=== PATIENT | female | born 2005 | race African-American/Black ===

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

== ENCOUNTER 2025-02-16 19:24 | Emergency (ER) | payer SELFPAY ==
[~2025-02-16] VITALS: Ht 165.1 cm; Wt 58.2 kg
--- NOTE | 2025-02-16 20:06 | ED.PDOC ---
General HPI Comments 19 y.o female presents to the ED for a chief complaint of bilateral lower lumbar/flank pain that has been ongoing for 2-3 days. Patient reports being diagnose with a UTI at an urgent care one week ago due to urinary symptoms. Patient was placed on a 5 day course of Cipro in which she finished but continues to have symptoms such as frequency and suprapubic cramping. Patient reports back pain is intermittent but has worsened throughout the day, now rati ng a 7/10 on the pain scale. Patient reports no recent falls, heavy lifting, dysuria, hematuria, fever, chills, nausea or vomiting. Patient's [facility] was on 01/22/25. No other medical history reported. Chief Complaint: Back Pain Time Seen by MD: 19:55 Primary Care Provider: NONE Reviewed notes: Nurses Notes, Medications, Allergies Allergies: Coded Allergies: NO KNOWN ALLERGIES (Unverified , 07/15/16) Information Source: Patient Mode of Arrival: Ambulatory Severity: Moderate Timing: Days Duration: Since onset Onset: Spontaneous Symptoms: Frequency History of: UTI Location: Suprapubic, (R) Flank, (L)Flank associated signs and symptoms: Flank Pain, Back Pain, Frequency Past Medical History PAST MEDICAL HISTORY: UTI'S Surgical History: Denies all surgeries CARD BOXER History: No Pertinent CARD BOXER History Family History Family History: Reviewed,noncontributory to illness Social History Smoker: Non-Smoker Alcohol: Denies ETOH Use Drugs: Denies Drug Use Lives In: Home Constitutional: denies: chills, diaphoresis, fatigue, fever, malaise, sweats, weakness, others EENTM: denies: blurred vision, double vision, ear bleeding, ear discharge, ear drainage, ear pain, ear ringing, eye pain, eye redness, hearing loss, mouth pain, mouth swelling, nasal discharge, nose bleeding, nose congestion, nose pain, photophobia, tearing, throat pain, throat swelling, voice changes, others Respiratory: denies: cough, hemoptysis, orthopnea, SOB at rest, shortness of breath, SOB with excertion, stridor, wheezing, others Cardiovascular: denies: chest pain, dizzy spells, diaphoresis, Dyspnea on exertion, edema, irregular heart beat, left arm pain, lightheadedness, palpitations, PND, syncope, others Gastrointestinal: denies: abdomen distended, abdominal pain, blood streaked bowels, constipated, diarrhea, dysphagia, difficulty swallowing, hematemesis, melena, nausea, poor appetite, poor fluid intake, rectal bleeding, rectal pain, vomiting, others Genitourinary: reports: flank pain, frequency; denies: abnormal vagina bleeding, burning, dyspareunia, dysuria, hematuria, incontinence, pain, , vagina discharge, urgency, others Neurological: denies: dizziness, fainting, headache, left sided numbness, left sided weakness, numbness, paresthesia, pre-existing deficit, right sided numbness, right sided weakness, seizure, speech problems, tingling, tremors, weakness, others Musculoskeletal: reports: back pain; denies: gout, joint pain, joint swelling, muscle pain, muscle stiffness, neck pain, others Integumetry: denies: bruises, change in color, change in hair/nails, dryness, laceration, lesions, lumps, rash, wounds, others Allergic/Immunocompromised: denies: Difficulty Healing, Frequent Infections, Hives, Itching, others Hematologic/Lymphatic: denies: anemia, blood clots, easy bleeding, easy bruising, swollen glands, others Endocrine: denies: excessive hunger, excessive sweating, excessive thirst, excessive urination, flushing, intolerance to cold, intolerance to heat, unexplained weight gain, unexplained weight loss, others Psychiatric: denies: anxiety, bipolar disorder, depression, hopeless, panic disorder, schizophrenia, sleepless, suicidal, others All Other Systems: Reviewed and Negative Physical Exam General Appearance: No Apparent Distress, Normal HEENT: Normal ENT Inspection, Pharynx Normal, TMs Normal Neck: Full Range of Motion, Non-Tender, Normal, Normal Inspection Respiratory: Chest Non-Tender, Lungs Clear, No Accessory Muscle Use, No Respir atory Distress, Normal Breath Sounds Cardiovascular: No Edema, No JVD, No Murmur, No Gallop, Normal Peripheral Pulses, Regular Rate/Rhythm Breast Exam: Deferred Gastrointestinal: No Organomegaly, No Pulsatile Mass, Normal Bowel Sounds, Suprapubic, Tenderness Genitalia: Deferred Pelvic: Deferred Rectal: Deferred Extremities: No calf tenderness, Normal capillary refill, Normal inspection, Normal range of motion, Non-tender, No pedal edema Musculoskeletal : Location: Bilateral Extremity Location: Back (lumbar ), Other (BL flank region tenderness ) Apperance: Tenderness: Moderate Neurologic: Alert, 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 Was a procedure done?: No Differential Diagnosis Kidney stone (Female): Hepatitis, HNP, Musculoskeletal pain, Ovarian torsion, Pancreatitis, Pyelonephritis, Strain, Urolithiasis Urinary Problem (Female): Intrauterine , PID, Pyelonephritis, Urolithiasis, UTI X-Ray, Labs, Meds, VS Vital Signs Date Time Temp Pulse Resp B/P (MAP) Pulse Ox O2 Delivery O2 Flow Rate FiO2 02/16/25 19:25 97.6 56 16 125/78 100 97.6 Lab Test 02/16/25 19:25 Range/Units Urine Color Colorless Yellow Urine Clarity Clear Clear Urine pH 6.0 5.0-9.0 Urine Specific [place] 1.004 1.001-1.035 Urine Protein Negative Negative Urine Ketones Negative Negative Urine Blood Negative Negative /uL Urine Nitrite Negative Negative Urine Bilirubin Negative Negative Urine Urobilinogen Normal Negative mg/dL Urine Leukocyte Esterase Negative Negative /uL Urine RBC 1 0 - 4 /hpf Urine Microscopic WBC < 1 0-5 /HPF Urine Squamous Epithelial Cells None seen <5 /hpf Urine Bacteria Few H None Seen /hpf Urine Glucose Normal Normal mg/dL X-Ray, Labs, Meds, VS Comment Imaging was reviewed by this provider, there is no obvious pathological or acute disease process. Pending radiology review Labs were reviewed by this provider, no abnormalities Vital signs reviewed by this provider, clinically stable Time of 1ST Reevaluation: 20:05 Reevaluation 1ST: Unchanged Patient Education/Counseling: Diagnosis, Treatment, Prognosis, Need For Follow Up (Follow up with PCP in the next two three days. Return to emergency department if symptoms worsen.) Family Education/Counseling: No Family Present SEPSIS Sepsis Screen Date sepsis recognized/suspect: Feb 16, 2025 Time Sepsis recognized/suspect: 1924 Recent Procedure: No On Antibiotic Therapy: Yes Respiratory Rate >20: No Heart Rate >90: No Temp<36 C (96.8 F) or >38.3 C: No SBP <90 or MAP <65 mmHG: No New Acute Mental Status Change: No Is the patient on CPAP, BIPAP,: No Vital Signs Date Time Temp Pulse Resp B/P (MAP) Pulse Ox O2 Delivery O2 Flow Rate FiO2 02/16/25 19:25 97.6 56 16 125/78 100 97.6 Departure 1 Departure Time of Disposition: 21:01 Impression: Primary Impression: Acute urinary tract infection Disposition: HOME / SELF CARE / HOMELESS Condition: Fair e-Prescriptions Nitrofurantoin Monohydrate Mac (Macrobid) 100 Mg Cap 100 MG PO BID for 5 Days, #10 CAP Prov: AMARI WILSON 02/16/25 Discharged With: Self Critical Care Note Critical Care Time?: No Stability Stability form required: No I personally scribed for AMARI WILSON ([email or web address]) on 02/16/25 at 20:06. Electronically submitted by Anat Gomez ([facility]). AMARI WILSON Feb 16, 2025 20:06
[2025-02-16 20:17] LABS: Urine Protein, UAD Negative (Negative)
[2025-02-16] MEDS ORDERED: NITR-87 PO (21:03)
[2025-02-17 01:11] VITALS: BP 118/80; PULSE 60; RESP 16; TEMP 98.2; O2SAT 100
== END 2025-02-17 01:11 | disposition home or self-care (01) ==
LOC: ER 19:27 → EDBD 19:27 → ER 02-17 01:11
DX: N39.0 Urinary tract infection, site not specified (principal); Z79.899 Other long term (current) drug therapy
CPT/HCPCS: 81001